=== PATIENT | female | born 1995 | race Caucasian/White ===

== ENCOUNTER 2024-08-12 15:28 | Outpatient (CLI) | payer OTHER, SELFPAY ==
[2024-08-15 20:47] LABS: HPV Source Cervical; HPV, High Risk by TMA Not Detected
== END 2024-08-12 15:29 | disposition home or self-care (01) ==
PROVIDERS: PCP Internal Medicine; Visit Provider Registered Nurse
DX: D64.9 Anemia, unspecified (principal); R53.83 Other fatigue; Z13.6 Encounter for screening for cardiovascular disorders; Z13.1 Encounter for screening for diabetes mellitus; Z13.820 Encounter for screening for osteoporosis; Z12.4 Encounter for screening for malignant neoplasm of cervix; Z13.9 Encounter for screening, unspecified
CPT/HCPCS: 80061; 82306; 84443; 87624; 87625; 88141; 88142